=== PATIENT | female | born 1940 ===

== ENCOUNTER 2017-01-18 12:36 | Observation (INO) | payer SELFPAY ==
[2017-01-18 13:03] VITALS: BMI 32.5
--- NOTE | 2017-01-18 13:36 | ED PDOC ---
Arrival/HPI - General Chief Complaint: Dizziness/Lightheaded Time Seen by Provider: 01/18/17 13:10 Historian: Patient - History of Present Illness Narrative History of Present Illness (Text): 01/18/17 13:22 A 76 year old female, whose past medical history includes hypertension, diabetes and hypothyroidism, is brought into the emergency department by family complaining of dizziness for the past 3 days. Patient reports her symptom is relieved at rest and worse when standing up. Patient notes sweats, a dry cough and abdominal pain. Patient denies any headache, fever, nausea, vomiting, diarrhea, urinary symptoms, chest pain, shortness of breath, sore throat, congestion, rhinorrhea or any other complaints. Patient is visiting from [place]. Time/Duration: Other (days) Symptom Course: Unchanged Quality: Other Context: Home Past Medical History - Provider Review Nursing Documentation Reviewed: Yes - Travel History If Yes, travel location?: [place] - Cardiac Hx Hypertension: Yes - Endocrine/Metabolic Hx Diabetes Mellitus Type 2: Yes Hx Hypothyroidism: Yes - Psychiatric Hx Depression: Yes Hx Substance Use: No Family/Social History - Physician Review Nursing Documentation Reviewed: Yes Family/Social History: No Known Family HX Smoking Status: Never Smoked Hx Alcohol Use: No Hx Substance Use: No Allergies/Home Meds Allergies/Adverse Reactions: Allergies Penicillins Allergy (Verified 01/18/17 13:01) SWELLING Home Medications: Home Meds Medication Instructions Recorded Confirmed Albuterol HFA [Ventolin HFA 90 2 puff NEB Q6 PRN 01/18/17 01/18/17 mcg/actuation (8 g)] Carvedilol [Coreg] 12.5 mg PO DAILY 01/18/17 01/18/17 FLUoxetine [Prozac] 20 mg PO DAILY 01/18/17 01/18/17 Insulin Glargine, Recombina 60 units SC DAILY 01/18/17 01/18/17 [Lantus] Isosorbide Dinitrate [Isordil] 10 mg PO DAILY 01/18/17 01/18/17 Levothyroxine [Synthroid] 50 mcg PO DAILY 01/18/17 01/18/17 amLODIPine [Norvasc] 5 mg PO DAILY 01/18/17 01/18/17 Review of Systems - Physician Review All systems were reviewed & negative as marked: Yes - Review of Systems Constitutional: Night Sweats. absent: Fevers ENT: absent: Sore Throat, Rhinorrhea, Sinus Congestion Respiratory: Cough. absent: SOB, Sputum Cardiovascular: absent: Chest Pain Gastrointestinal: Abdominal Pain. absent: Diarrhea, Nausea, Vomiting Genitourinary Female: absent: Dysuria, Frequency, Hematuria, Urine Output Changes Neurological: Dizziness. absent: Headache Physical Exam Vital Signs Temp Pulse Resp BP Pulse Ox 01/18/17 16:34 62 18 141/63 98 01/18/17 14:23 20 L 18 121/85 98 01/18/17 13:05 98.6 F 66 18 143/71 96 Appearance: Positive for: Well-Appearing, Non-Toxic, Comfortable Pain Distress: None Mental Status: Positive for: Alert and Oriented X 3 - Systems Exam Head: Present: Atraumatic, Normocephalic Pupils: Present: PERRL Extroacular Muscles: Present: EOMI Conjunctiva: Present: Normal Mouth: Present: Moist Mucous Membranes Neck: Present: Normal Range of Motion Respiratory/Chest: Present: Good Air Exchange, Rhonchi (Rhonchi in bilateral lower lung field). No: Respiratory Distress, Accessory Muscle Use Cardiovascular: Present: Regular Rate and Rhythm, Normal S1, S2. No: Murmurs Abdomen: Present: Normal Bowel Sounds. No: Tenderness, Distention, Peritoneal Signs Back: Present: Normal Inspection Upper Extremity: Present: Normal Inspection. No: Cyanosis, Edema Lower Extremity: Present: Normal Inspection. No: Edema Neurological: Present: GCS=15, CN II-XII Intact, Speech Normal Skin: Present: Warm, Dry, Normal Color. No: Rashes Psychiatric: Present: Alert, Oriented x 3, Normal Insight, Normal Concentration Medical Decision Making ED Course and Treatment: 01/18/17 13:22 Impression: A 76 year old female with dizziness when standing up. Patient notes sweats, dry cough and abdominal pain. Differential Diagnosis included but are not limited to: Dizziness, Cough rule out PNA vs. Sepsis Plan: -- Chest xray -- EKG -- Labs -- Blood and Urine culture -- Urinalysis -- Reassess and disposition Progress Notes: EKG shows NSR at [address]-segment elevations, normal intervals. Interpreted by me. Report Date : 01/18/2017 13:59:53 PROCEDURE: Single-view chest Dictator : Naman Witt MD IMPRESSION: No active disease. - Lab Interpretations Lab Results: 01/18/17 14:00 01/18/17 14:00 Lab Results 01/18/17 14:00: WBC 9.1, RBC 4.37, Hgb 13.3, Hct 39.8, MCV 91.1, MCH 30.4, MCHC 33.4, RDW 14.6 H, Plt Count 273, MPV 9.4, Gran % 59.6, Lymph % (Auto) 31.3, [place] % (Auto) 5.1, Eos % (Auto) 3.5, Baso % (Auto) 0.5, Gran # 5.43, Lymph # 2.9 , [place] # 0.5, Eos # 0.3, Baso # 0.05, pO2 32, VBG pH 7.31 L, VBG pCO2 62.0 H, VBG HCO3 31.2 H, VBG Total CO2 33.1 H, VBG O2 Sat (Calc) 59.6, VBG Base Excess 3.2 H, VBG Potassium 4.9, Glucose 230 H, Lactate 1.6, FiO2 21.0, Sodium 138.0, Potassium 4.8, Chloride 101.0, Carbon Dioxide 28, Anion Gap 17, BUN 23 H, Creatinine 0.7, Est GFR ( Amer) > 60, Est GFR (Non-Af Amer) > 60, Random Glucose 224 H, Calcium 9.7, Phosphorus 4.3, Magnesium 1.9, Total Bilirubin 0.6, AST 30, ALT 16, Alkaline Phosphatase 108, Troponin I < 0.01, NT-Pro-B Natriuret Pep 52.7, Total Protein 9.0 H, Albumin 4.1, Globulin 4.9, Albumin/Globulin Ratio 0.8 L, Lipase 108, Venous Blood Potassium 4.9 I have reviewed the lab results: Yes Interpretation: All labs normal - RAD Interpretation Radiology Orders: 01/18/17 13:21 CHEST PORTABLE [RAD] Stat 01/18/17 16:16 HEAD W/O CONTRAST [CT] Stat CXR negative for pna Supervisor [employer]: ED Physician - Medication Orders Current Medication Orders: Discontinued Medications Aspirin (Aspirin) 325 mg PO STAT STA Stop: 01/18/17 18:53 Sodium Chloride (Sodium Chloride 0.9%) 1,000 mls @ 999 mls/hr IV .Q1H1M STA Stop: 01/18/17 15:46 Last Admin: 01/18/17 15:15 Dose: 999 MLS/HR eMAR Start Stop Document 01/18/17 15:15 BARRETT (Rec: 01/18/17 15:20 BARRETT [id number]) Intravenous Solution Start Date 01/18/17 Start Time 15:15 End Date 01/18/17 End time 15:45 Total Infusion Time 30 Meclizine HCl (Antivert) 25 mg PO STAT STA Stop: 01/18/17 16:17 Last Admin: 01/18/17 16:34 Dose: 25 MG Metoclopramide HCl (Reglan) 10 mg IVP STAT STA Stop: 01/18/17 18:19 ED OBSERVATION Date of observation admission: 01/18/17 Time of observation admission: 13:30 - Observation admission statement Patient is being placed in observation because:: Dizziness - Goals of Observation Goals of observation are:: IVF, Meclizine - Progress Note Progress Note: 01/18/17 16:18 On revaluation after 1 L NS patient continues to feel dizzy. Niece arrived who states that she does suffer from vertigo and her doctor stopped giving her medications for it. CT head ordered. Meclizine ordered and will reevaluate. 01/18/17 18:22 On reevaluation after Meclizine PO patient stands up and walks for me and feels very unsteady. She walks and has ataxia. CT results pending. Reglan IV ordered as sedcond line antivert. 01/18/17 18:54 Patient continued to feel dizzy when walking and has not improved. Laying down she feels better. CT resulted as negative for ICH or Stroke as discussed with Dr. Li. Will place on telemetry observation for Persistent Dizziness r/o TIA/ CVA and Bronchitis/Viral Syndrome. 01/18/17 19:[address] Interiano Resident. NIHSS Scale ([place]) Time Performed: 13:10 - How Severe is the Stoke Baseline Level of Consciousness: 0=Alert LOC to Questions: 0=Both comments correct LOC to commands: 0=Obeys both correctly Best Gaze: 0=Normal Visual: 0=No visual loss Facial: 0=Normal Motor Arm - Left: 0=No drift Motor Arm - Right: 0=No drift Motor Leg - Left: 0=No drift Motor Leg - Right: 0=No drift Limb Ataxia: 0=Absent Sensory: 0=Normal Best Language: 0=No aphasia Dysarthia: 0=Normal articulation Extinction & Inattention (Neglect): 0=Normal, no object Score: 0 Risk Level: No Stroke Risk rTPA Inclusion/Exclusion - Refusal of Treatment Patient Refused Treatment: No - Inclusion Criteria for Altepase Patient is 18 years or Older: Yes The Clinical Diagnosis of Ischemic Stroke That is Causing a Potentially Disabling Neurological Deficit: No Time of Onset is Well Established to be Less Than 270 Minute Before Treatment Would Begin: No Risk/Benefit Discussed With Patient/Family Member Present: No - Scribe Statement The provider has reviewed the documentation as recorded by the Pritiibroe Hassan Provider Scribe Attestation: All medical record entries made by the Scribe were at my direction and personally dictated by me. I have reviewed the chart and agree that the record accurately reflects my personal performance of the history, physical exam, medical decision making, and the department course for this patient. I have also personally directed, reviewed, and agree with the discharge instructions and disposition. Disposition/Present on Arrival - Present on Arrival Any Indicators Present on Arrival: No History of DVT/PE: No History of Uncontrolled Diabetes: No Urinary Catheter: No History of Decub. Ulcer: No History Surgical Site Infection Following: None - Disposition Have Diagnosis and Disposition been Completed?: Yes Diagnosis: Dizziness Disposition Time: 13:30 Patient Plan: Observation Patient Problems: Current Active Problems Problem Status Diagnosed Dizziness Acute Condition: FAIR Referrals: PCP,NO [Primary Care Provider] - Follow up with primary
--- NOTE | 2017-01-18 14:01 | RAD ---
PROCEDURE: Single-view chest HISTORY: Sepsis Patient COMPARISON: None TECHNIQUE: Technique: Single view portable semi erect @ 13:35. FINDINGS: No active pulmonary disease. No pulmonary nodules, masses or infiltrates. No evidence of acute, significant cardiovascular disease. No significant pleural, osseous or subdiaphragmatic abnormalities. IMPRESSION: No active disease.
[2017-01-18 14:10] LABS: ADD MANUAL DIFF? NO
[2017-01-18 14:16] LABS: VENOUS BLOOD GAS BASE EXCESS 3.2 mmol/L (0.0-2.0); VENOUS BLOOD PH 7.31 (7.32-7.43)
[2017-01-18 14:27] LABS: BASO # 0.05 K/mm3 (0.0-2.0); BASO % 0.5 % (0.0-3.0); EOS # 0.3 (0.0-0.7); EOS % 3.5 % (1.5-5.0); GRAN # 5.43 (1.4-6.5); GRAN % 59.6 % (50.0-68.0); HEMATOCRIT 39.8 % (36.0-48.0); LYMPH # 2.9 (1.2-3.4); LYMPH % 31.3 % (22.0-35.0); MEAN CELL VOLUME 91.1 fL (80.0-105.0); MEAN CORPUSCULAR HEMOGLOBIN 30.4 pg (25.0-35.0); MEAN CORPUSCULAR HGB CONC 33.4 g/dl (31.0-37.0); MEAN PLATELET VOLUME 9.4 fl (7.0-11.0); MONO # 0.5 (0.1-0.6); MONO % 5.1 % (1.0-6.0); PLATELET COUNT 273 10^3/uL (120.0-450.0); RED CELL DISTRIBUTION WIDTH 14.6 % (11.5-14.5); WHITE BLOOD COUNT 9.1 10^3/ul (4.5-11.0)
[2017-01-18 14:31] LABS: ALB/GLOB RATIO 0.8 (1.1-1.8); ALKALINE PHOSPHATASE 108 U/L (38-133); ALT/SGPT 16 U/L (7-56); AST/SGOT 30 U/L (15-39); BILIRUBIN,TOTAL 0.6 mg/dL (0.2-1.3); BLOOD UREA NITROGEN 23 mg/dL (7-21); CALCIUM 9.7 mg/dL (8.4-10.5); CARBON DIOXIDE 28 mmol/L (21-33); CHLORIDE 98 mmol/L (98-107); GFR AFRICAN-AMERICAN > 60; GLUCOSE,RANDOM 224 mg/dL (70-110); MAGNESIUM 1.9 mg/dL (1.7-2.2); PHOSPHOROUS 4.3 mg/dL (2.5-4.5); POTASSIUM 4.8 mmol/L (3.6-5.0); SODIUM 138 mmol/L (132-148)
[2017-01-18 14:43] LABS: TROPONIN I < 0.01 ng/mL
[2017-01-18] MEDS ORDERED: Sodium Chloride 0.9% 1,000 ML IV STA (14:46)
--- NOTE | 2017-01-18 18:14 | CARD ---
APPROVED REPORT EKG Measurement Heart [id number] <Conclusion> Normal sinus rhythm Normal ECG
--- NOTE | 2017-01-18 18:32 | CT ---
PROCEDURE: CT HEAD WITHOUT CONTRAST. HISTORY: r/o cva COMPARISON: None available. TECHNIQUE: Axial computed tomography images were obtained through the head/brain without intravenous contrast. Radiation dose: Total exam DLP = 725.84 mGy-cm. FINDINGS: HEMORRHAGE: No intracranial hemorrhage. BRAIN: Diffuse atrophy with prominence of the ventricles and sulci noted. No mass effect or edema. Intracranial atherosclerotic calcifications. Mild scattered white matter hypodensities, which are nonspecific, but often seen with chronic microvascular ischemic disease. Please note that MRI with diffusion imaging is more sensitive in the detection of acute ischemic event. VENTRICLES: No hydrocephalus. CALVARIUM: Bilateral lucencies involving the calvarium, temporal region; indeterminate. PARANASAL SINUSES: Unremarkable as visualized. No significant inflammatory changes. MASTOID AIR CELLS: Unremarkable as visualized. No inflammatory changes. OTHER FINDINGS: None. IMPRESSION: Generalized atrophy. Nonspecific white matter changes. Bilateral lucencies involving the calvarium, temporal region; indeterminate. Correlate with clinical history. Additional imaging such as bone scan or MRI may be considered in proper clinical setting.
--- NOTE | 2017-01-18 19:19 | CP.PCM.HP ---
<LizRissa - Last Filed: 01/18/17 20:31> History of Present Illness - History of Present Illness History of Present Illness: PGY-[address] Alexandra A 76 year old female who recently flew from [place] 2 weeks ago, whose past medical history includes 1 vessel CAD s/p stent, hypertension, diabetes, gastritis, and hypothyroidism, is brought into the emergency department by family complaining of dizziness for the past 3 days. Dizziness is related to room spinning, not lightheadedness. Patient reports her symptom is relieved at rest and worse when standing up. Patient noticed dry cough. She recently had epigastric abdominal pain since she ran out of omeprazole, gnawing, worsen upon palpation. Pt states that she does suffer from vertigo but her doctor stopped giving her medications for it. Normally the med helped her in 15 mins. Patient denies any head trauma, headache, fever, chills, nausea, vomiting, diarrhea, urinary symptoms, chest pain, shortness of breath, sore throat, congestion, rhinorrhea or any other complaints. On PE, noted Rhonchi. EKG shows NSR at [address]-segment elevations, normal intervals. CT resulted as negative for ICH or Stroke. NIHSS 0. Pt felt dizzy despite 1L NS, meclizine, reglan. After interventions, Patient continued to feel dizzy when walking and has not improved. Laying down she feels better. Pt is admitted to telemetry observation for Persistent Dizziness r/o TIA/CVA and Bronchitis/Viral Syndrome. PMH 1 vessel CAD with stent placement Hypertension Diabetes Mellitus Type 2, IDDM gastritis Hypothyroidism Depression PSH Cholecysectomy CAD s/p stent FH all healthy SH Never Smoked Denies Alcohol/Substance Use Allergies Penicillins -SWELLING Meds Albuterol Carvedilol [Coreg] 12.5 mg PO DAILy amLODIPine [Norvasc] 5 mg PO DAILY FLUoxetine [Prozac] 20 mg PO DAILY Insulin Glargine, Recombina 60 units SC DAILY Isosorbide Dinitrate [Isordil] 10 mg PO DAILY Levothyroxine [Synthroid] 50 mcg PO omeprazole PMD None Present on Admission - Present on Admission Any Indicators Present on Admission: No Past Patient History - Past Social History Smoking Status: Never Smoked - CARDIAC Hx Hypertension: Yes - ENDOCRINE/METABOLIC Hx Diabetes Mellitus Type 2: Yes Hx Hypothyroidism: Yes - PSYCHIATRIC Hx Depression: Yes Hx Substance Use: No Meds Allergies/Adverse Reactions: Allergies Allergy/AdvReac Type Severity Reaction Status Date / Time Penicillins Allergy SWELLING Verified 01/18/17 13:01 Physical Exam - Constitutional Appears: No Acute Distress - Head Exam Head Exam: ATRAUMATIC, NORMOCEPHALIC - Eye Exam Eye Exam: EOMI, Normal appearance, PERRL Pupil Exam: NORMAL ACCOMODATION - ENT Exam ENT Exam: Mucous Membranes Moist - Neck Exam Neck exam: Positive for: Normal Inspection Additional comments: no jvd, supple - Respiratory Exam Respiratory Exam: Clear to Auscultation Bilateral, NORMAL BREATHING PATTERN. absent: Rales, Rhonchi, Wheezes - Cardiovascular Exam Cardiovascular Exam: REGULAR RHYTHM, +S1, +S2. absent: Systolic Murmur - GI/Abdominal Exam GI & Abdominal Exam: Normal Bowel Sounds, Soft, Tenderness. absent: Distended, Firm, Guarding, Rigid Additional comments: LUQ - Extremities Exam Extremities exam: Positive for: normal capillary refill, pedal pulses present. Negative for: calf tenderness, pedal edema - Back Exam Back exam: absent: CVA tenderness (L), CVA tenderness (R) - Neurological Exam Neurological exam: Alert, CN II-XII Intact, Oriented x3, Reflexes Normal Additional comments: motor sensory grossly intact. negative dixhallpike - Psychiatric Exam Psychiatric exam: Normal Affect, Normal Mood - Skin Skin Exam: Dry, Normal Color, Warm Results - Vital Signs Recent Vital Signs: Last Vital Signs Temp 98.2 F 01/18/17 19:15 Pulse 80 01/18/17 19:15 Resp 18 01/18/17 19:15 BP 135/77 01/18/17 19:15 Pulse Ox 98 01/18/17 19:15 - Labs Result Diagrams: 01/18/17 14:00 01/18/17 14:00 Labs: Laboratory Results - last 24 hr 01/18/17 14:00 WBC 9.1 RBC 4.37 Hgb 13.3 Hct 39.8 MCV 91.1 MCH 30.4 MCHC 33.4 RDW 14.6 H Plt Count 273 MPV 9.4 Gran % 59.6 Lymph % (Auto) 31.3 [place] % (Auto) 5.1 Eos % (Auto) 3.5 Baso % (Auto) 0.5 Gran # 5.43 Lymph # 2.9 [place] # 0.5 Eos # 0.3 Baso # 0.05 pO2 32 VBG pH 7.31 L VBG pCO2 62.0 H VBG HCO3 31.2 H VBG Total CO2 33.1 H VBG O2 Sat (Calc) 59.6 VBG Base Excess 3.2 H VBG Potassium 4.9 Sodium 138 Chloride 98 Glucose 230 H Lactate 1.6 FiO2 21.0 Potassium 4.8 Carbon Dioxide 28 Anion Gap 17 BUN 23 H Creatinine 0.7 Est GFR ( Amer) > 60 Est GFR (Non-Af Amer) > 60 Random Glucose 224 H Calcium 9.7 Phosphorus 4.3 Magnesium 1.9 Total Bilirubin 0.6 AST 30 ALT 16 Alkaline Phosphatase 108 Troponin I < 0.01 NT-Pro-B Natriuret Pep 52.7 Total Protein 9.0 H Albumin 4.1 Globulin 4.9 Albumin/Globulin Ratio 0.8 L Lipase 108 Venous Blood Potassium 4.9 Assessment & Plan - Assessment and Plan (Free Text) Plan: A 76 year old female who recently flew from [place] 2 weeks ago, whose past medical history includes 1 vessel CAD s/p stent, hypertension, diabetes, gastritis, and hypothyroidism, admitted for dizziness. he recently had epigastric abdominal pain since she ran out of omeprazole, gnawing, worsen upon palpation. Dizziness - likely vertigo due to BPPV, possible labyrinthitis - r/o lightheadedness from vasovagal, cardiogenic, volume depletion - r/o TIA/CVA. NIHSS 0 - IVF - Physical Therapy - echo, carotid doppler - CT head -- generalized atrophy, non-specific white matter changes, bilateral lucencies involiving calvarium, temporal region - MRI head - tele obs - TSH, orthostatic Epigastric Abdominal pain - protonix trial - r/o cardiac cause; trend cardiac enzyme Dry cough - no signs of sinusitus, likely from gerd/gastritis IDDM - ISSS - a1c - Home glargine 60 sc Hx CAD s/p stent Hx HTN - lipid panel - Home coreg, norvasc, isodil - Add aspirin Hx gastritis - add protonix - avoid nsaid hypothyroidism - home levothyroxine - ck thyroid panel Prophylaxis - lovenox, ptx S/R/D/w Dr. Alexandra - Date & Time Date: 01/18/17 Time: 19:19 <Cornelius Alexandra - Last Filed: 01/19/17 20:33> Results - Vital Signs Recent Vital Signs: Last Vital Signs Temp 98.3 F 01/19/17 12:00 Pulse 58 L 01/19/17 14:00 Resp 20 01/19/17 12:00 BP 112/70 01/19/17 12:00 Pulse Ox 97 01/19/17 09:00 - Labs Result Diagrams: 01/19/17 07:45 01/19/17 07:45 Labs: Laboratory Results - last 24 hr 01/18/17 01/19/17 01/19/17 22:24 07:31 07:45 WBC 9.8 RBC 4.19 Hgb 12.7 Hct 38.2 MCV 91.2 MCH 30.3 MCHC 33.2 RDW 14.7 H Plt Count 255 MPV 9.1 Gran % 57.0 Lymph % (Auto) 32.8 [place] % (Auto) 6.8 H Eos % (Auto) 2.9 Baso % (Auto) 0.5 Gran # 5.59 Lymph # 3.2 [place] # 0.7 H Eos # 0.3 Baso # 0.05 Sodium 141 Potassium 4.1 Chloride 105 Carbon Dioxide 26 Anion Gap 14 BUN 17 Creatinine 0.7 Est GFR ( Amer) > 60 Est GFR (Non-Af Amer) > 60 POC Glucose (mg/dL) 218 H 62 L Random Glucose 62 L Hemoglobin A1c 8.2 H Calcium 9.0 Total Bilirubin 0.6 AST 29 ALT 15 Alkaline Phosphatase 93 Lactate Dehydrogenase 350 Total Creatine Kinase 41 Troponin I < 0.01 Total Protein 8.2 Albumin 3.7 Globulin 4.5 Albumin/Globulin Ratio 0.8 L Attending/Attestation - Attestation I have personally seen and examined this patient.: Yes I have fully participated in the care of the patient.: Yes I have reviewed all pertinent clinical information: Yes Notes (Text): 01/19/17 20:32 Agree with history, physical examination , assessment and plan. Patient was examined when she was in ER .
[2017-01-18 20:24] LABS: PH,URINE 6.5 (4.7-8.0); URINE APPEARANCE CLEAR (CLEAR); URINE BILIRUBIN NEGATIVE (NEGATIVE); URINE BLOOD NEGATIVE (NEGATIVE); URINE COLOR YELLOW (YELLOW); URINE GLUCOSE (UA) NEGATIVE (NEGATIVE); URINE KETONE NEGATIVE (NEGATIVE); URINE LEUKOCYTE ESTERASE NEGATIVE Leu/uL (NEGATIVE); URINE PROTEIN NEGATIVE mg/dL (<30 mg/dL); URINE UROBILINOGEN 0.2 E.U./dL (<1 E.U./dL)
[2017-01-18] MEDS ORDERED: Albuterol HFA 90 mcg/actuation (8 g) INH PRN (20:27)
[2017-01-18] MEDS ORDERED: Albuterol 0.083% Inhal Sol (2.5 mg/3 mL) UD IH PRN (20:38)
[2017-01-18] MEDS: Sodium Chloride 0.9% 1,000 ML IV SCH (21:18)
--- NOTE | 2017-01-18 22:06 | US ---
PROCEDURE: Bilateral carotid artery duplex ultrasound HISTORY: Carotid stenosis dizziness PHYSICIAN(S): Cali Rey MD. TECHNIQUE: Duplex sonography and color-flow Doppler were used to evaluate the carotid bifurcations and limited segments of the vertebral arteries bilaterally. FINDINGS: There is mild smooth heterogeneous plaque noted at the carotid bifurcations bilaterally. The peak systolic velocity in the proximal right internal carotid artery is 67 cm/sec. This corresponds to a 20 to 39% proximal right ICA stenosis. Normal systolic velocities are noted in the proximal right external carotid artery. There is antegrade flow in the right vertebral artery. The peak systolic velocity in the proximal left internal carotid artery is 76 cm/sec. This corresponds to a 20 to 39% proximal left ICA stenosis. Normal systolic velocities are noted in the proximal left external carotid artery. There is antegrade flow in the dominant left vertebral artery. IMPRESSION: 1. Bilateral 20-39% proximal ICA stenoses. 2. Antegrade flow in both vertebral arteries.
[2017-01-18] MEDS: Insulin Lispro (humaLOG) LOW Coverage SC SCH (22:35)
[2017-01-18] MEDS: Insulin Detemir 100 units/ml Vial (Levemir) SC SCH (23:04)
[2017-01-18 23:17] LABS: FREE T4 0.67 ng/dL (0.78-2.19); T4 5.6 ug/dL (5.5-11.0)
[2017-01-18 23:18] LABS: CHOLESTEROL 238 mg/dL (130-200)
[2017-01-18 23:30] LABS: THYROID STIMULATING HORMONE 9.75 mIU/mL (0.46-4.68)
[2017-01-19 02:13] VITALS: RESP 20
[2017-01-19] MEDS ORDERED: Pantoprazole 40 mg EC Tab PO SCH (06:30)
[2017-01-19 07:49] LABS: ADD MANUAL DIFF? NO
[2017-01-19 07:53] LABS: BASO # 0.05 K/mm3 (0.0-2.0); BASO % 0.5 % (0.0-3.0); EOS # 0.3 (0.0-0.7); EOS % 2.9 % (1.5-5.0); GRAN # 5.59 (1.4-6.5); HEMATOCRIT 38.2 % (36.0-48.0); LYMPH # 3.2 (1.2-3.4); LYMPH % 32.8 % (22.0-35.0); MEAN CELL VOLUME 91.2 fL (80.0-105.0); MEAN CORPUSCULAR HEMOGLOBIN 30.3 pg (25.0-35.0); MEAN CORPUSCULAR HGB CONC 33.2 g/dl (31.0-37.0); MEAN PLATELET VOLUME 9.1 fl (7.0-11.0); MONO # 0.7 (0.1-0.6); MONO % 6.8 % (1.0-6.0); PLATELET COUNT 255 10^3/uL (120.0-450.0); RED CELL DISTRIBUTION WIDTH 14.7 % (11.5-14.5); WHITE BLOOD COUNT 9.8 10^3/ul (4.5-11.0)
[2017-01-19] MEDS: Insulin Lispro (humaLOG) LOW Coverage SC SCH ×2 (07:53→11:53)
[2017-01-19 08:32] LABS: ALB/GLOB RATIO 0.8 (1.1-1.8); ALKALINE PHOSPHATASE 93 U/L (38-133); ALT/SGPT 15 U/L (7-56); AST/SGOT 29 U/L (15-39); BILIRUBIN,TOTAL 0.6 mg/dL (0.2-1.3); BLOOD UREA NITROGEN 17 mg/dL (7-21); CARBON DIOXIDE 26 mmol/L (21-33); CHLORIDE 105 mmol/L (98-107); GFR AFRICAN-AMERICAN > 60; GLUCOSE,RANDOM 62 mg/dL (70-110); POTASSIUM 4.1 mmol/L (3.6-5.0); SODIUM 141 mmol/L (132-148); TOTAL PROTEIN 8.2 g/dL (5.8-8.3)
[2017-01-19] MEDS: Insulin Detemir 100 units/ml Vial (Levemir) SC SCH (09:29)
[2017-01-19 09:33] LABS: TROPONIN I < 0.01 ng/mL
[2017-01-19] MEDS ORDERED: Insulin Detemir 100 units/ml Vial (Levemir) SC SCH (09:56)
[2017-01-19] MEDS ORDERED: INSULIN GLARGINE RECOMBINA SC SCH (10:00)
[2017-01-19] MEDS ORDERED: Levothyroxine 50 MCG TAB PO SCH (10:00)
[2017-01-19] MEDS ORDERED: Enoxaparin 40 mg Syringe SC SCH (10:00)
--- NOTE | 2017-01-19 10:29 | MRI ---
PROCEDURE: MRI BRAIN WITHOUT CONTRAST HISTORY: bilateral lucencies involving the calvarium, temporal COMPARISON: Comparison made with CT scan of the brain 01/18/2017. TECHNIQUE: Multiplanar, multisequence MR images of the brain were obtained without intravenous contrast enhancement. FINDINGS: HEMORRHAGE: No acute parenchymal, subarachnoid or extra-axial hemorrhage. No hemosiderin deposition identified on gradient echo weighted sequence. DWI: No evidence of an acute or early subacute infarction seen on diffusion-weighted images. . BRAIN PARENCHYMA: There appears to be some very minimal chronic periventricular white matter ischemic changes most pronounced in the perianal frontal horn regions. In addition, there are multiple chronic appearing small lacunar type infarcts scattered about the deep and subcortical white matter both cerebral hemispheres. VENTRICLES: Mild age-appropriate volume loss. CRANIUM: Previously noted well-circumscribed lucency within the right posterior temporal bone chest cephalic to the mastoid air complex is not appreciated on this study and may represent vascular groove or possibly arachnoid granulations. . ORBITS: Orbits and contents unremarkable. . PARANASAL SINUSES/MASTOIDS: Clear VASCULAR SYSTEM: Visualized major vascular flow voids at skull base are patent. OTHER FINDINGS: None. IMPRESSION: No acute intracranial hemorrhage or infarct. Mild chronic white matter ischemic changes. Mild age-appropriate volume loss.
--- NOTE | 2017-01-19 10:31 | CON ---
DATE: 01/19/2017 REASON FOR CONSULTATION: Dizziness. HISTORY OF PRESENTING ILLNESS: The patient is a 76-year-old female who was brought to the Emergency Room with complaints of 3 days of dizziness. Dizziness is described as a spinning sensation. Since yesterday, she feels a little better now with dizziness; however, still gets dizzy. Denies having an y headaches. Denies any focal weakness in arms or legs. Denies to have any hearing loss or ringing in the ears. REVIEW OF SYSTEMS: Denies any headache. Positive for dizziness. Denies any chest pain, shortness o f breath, abdominal pain, constipation, diarrhea, dysuria, cough, sputum production. PAST MEDICAL HISTORY: Includes coronary artery disease, hypertension, diabetes mellitus, gastritis, hypothyroidism, depression. PAST SURGICAL HISTORY: Includes cholecystectomy. MEDICATIONS: At home included Prozac, Ventolin, Lantus, amlodipine, levothyroxine, Isordil, and Core g. ALLERGIES: PENICILLIN. SOCIAL HISTORY: Denies smoking, use of alcohol or illicit drugs. FAMILY HISTORY: Reviewed and noncontributory to the patient. PHYSICAL EXAMINATION: GENERAL: The patient is an elderly, pleasant female, lying on the bed, in no acute distress. VITAL SIGNS: Her blood pressure is 134/56, heart rate is 70 per minute, breathing at a rate of 16 pe r minute, temperature is 98 degrees Fahrenheit. HEENT: Head is normocephalic, atraumatic. NECK: Supple. There are no carotid bruits. LUNGS: Clear. CARDIOVASCULAR: S1 and S2 audible. No murmurs. ABDOMEN: Soft and nontender. Bowel sounds are present. NEUROLOGIC EXAMINATION: MENTAL STATUS: The patient is awake, alert, oriented to place, year, person. Speech is fluent. Nam ing and repetition normal. Memory and cognition are intact. CRANIAL NERVES: Pupils are 3 mm bilaterally, reactive to light. Visual may are full. Extraocula r movements are intact. There is no facial asymmetry. Palate is upgoing bilaterally and tongue is m idline. MOTOR: Tone is normal. Power is 5/5 bilaterally in all extremities. Reflexes +2 and symmetrical. Plantars downgoing bilaterally. CEREBELLAR: [id number] shows no dysmetria. GAIT: Deferred at the moment. SENSORY: Intact to soft touch and pinprick. LABORATORIES: Reviewed, shows WBC of 9.8, hemoglobin 12.7, hematocrit 38.2 and platelets of 255. So dium is 141, potassium 4.1, chloride 105, carbon dioxide content of 26, BUN of 17, creatinine 0.7, an d glucose of 62. She had a CT scan of the head done, which shows generalized atrophy, nonspecific minor white matter c hanges. Bilateral lucencies involving the calvarium temporal region, indeterminate. IMPRESSION: Dizziness, which appears to be secondary to labyrinthine dysfunction. RECOMMENDATIONS: 1. The patient to be started on low dose of meclizine 12.5 mg twice a day. 2. The patient to have MRI of the brain without contrast. 3. The patient to have physical therapy for gait imbalance. 4. If patient's MRI of the brain is negative for any acute intracranial pathology and patient is abl e to walk better, then consider discharging the patient and patient to be followed up as outpatient. Thank you for the opportunity to participate in the care of this patient. Sabrina Ayala MD cc: [id number] TT: 01/19/2017 10:31:23 Confirmation # [id number] Dictation # [id number]
[2017-01-19] MEDS: Sodium Chloride 0.9% 1,000 ML IV SCH (13:21)
[2017-01-19 13:50] VITALS: BP 112/70; TEMP 98.3
--- NOTE | 2017-01-19 15:28 | CON ---
DATE: 01/19/2017 HISTORY: The patient is a 76-year-old woman who complains of dizziness with symptoms consistent with vertigo. Her symptoms are exacerbated by moving her head and changing position. Her symptoms are better when her head is kept still. PAST MEDICAL HISTORY: Free of cardiac disease. She does have a history of diabetes mellitus. She denies chest pain, no shortness of breath. SOCIAL HISTORY: The patient does not smoke. REVIEW OF SYSTEMS: A 14-point review of systems is free of cardiac symptomatology. PHYSICAL EXAMINATION: VITAL SIGNS: Stable. NECK: Negative JVD. LUNGS: Without rales. HEART: Reveals S1, S2. EXTREMITIES: Without edema. EKG shows normal sinus rhythm with poor R-wave progression. LABORATORIES: Reviewed and found to be unremarkable. Echocardiogram is pending. IMPRESSION: 1. Dizziness, which is likely due to vertigo. 2. No evidence for active cardiac disease. 3. Abnormal EKG with poor R-wave progression. 4. Diabetes mellitus. Given these findings, I agree with neuro for starting meclizine. We will check her echocardiogram. Cali Tracy MD cc: [id number] TT: 01/19/2017 15:27:37 Confirmation # [id number] Dictation # [id number] sn
[2017-01-19 16:18] VITALS: O2SAT 97
[2017-01-19 16:22] VITALS: PULSE 58
--- NOTE | 2017-01-19 19:26 | CARD ---
APPROVED REPORT EXAM: Two-dimensional and M-mode echocardiogram with Doppler and color Doppler. INDICATION DIZZINESS 2D DIMENSIONS Left Atrium (2D)3.9 (1.6-4.0cm)IVSd1.0 (0.7-1.1cm) LVDd3.2 (3.9-5.9cm)PWd1.2 (0.7-1.1cm) LVDs2.4 (2.5-4.0cm)FS (%) 25.1 % LVEF (%)50.7 (>50%) M-Mode DIMENSIONS Aortic Root3.00 (2.2-3.7cm)Aortic Cusp Exc.1.50 (1.5-2.0cm) Aortic Valve AoV Peak Kcvlcjle764.0cm/Elsie Peak GR.11mmHg Mitral Valve MV E Zeeevpfb79.8cm/sMV A Deounonu02.4cm/sE/A ratio0.7 TDI Lateral E' Peak V6.34cm/sMedial E' Peak V4.68cm/sE/Lateral E'10.2 E/Medial E'13.8 Pulmonary Valve PV Peak Skzzqgif48.0cm/sPV Peak Grad.2mmHg Tricuspid Valve TR Peak Uvqewojm155hh/sRAP TJSKEABM79ypTlKJ Peak Gr.21mmHg [id number] LEFT VENTRICLE The left ventricle is normal size. There is normal left ventricular wall thickness. The left ventricular ejection fraction is borderline the normal range. Apical hypokinesis Transmitral Doppler flow pattern is Grade I-abnormal relaxation pattern. RIGHT VENTRICLE The right ventricle is normal size. There is normal right ventricular wall thickness. The right ventricular systolic function is normal. ATRIA The left atrium size is normal. The right atrium size is normal. AORTIC VALVE The aortic valve is not well visualized. No aortic regurgitation is present. MITRAL VALVE The mitral valve is mildly thickened. TRICUSPID VALVE There is trace tricuspid regurgitation. GREAT VESSELS The aortic root is normal in size. The IVC is normal in size and collapses >50% with inspiration. <Conclusion> The left ventricle is normal size. There is normal left ventricular wall thickness. The left ventricular ejection fraction is borderline the normal range. Apical hypokinesis Transmitral Doppler flow pattern is Grade I-abnormal relaxation pattern.
--- NOTE | 2017-01-19 20:35 | CP.PCM.DIS ---
<Russ Kebede - Last Filed: 01/19/17 20:19> Provider - Provider Date of Admission: 01/18/17 16:16 Attending physician: Siri Rosenberg MD Primary care physician: NO PRIMARY CARE PROVIDER Consults: Cardio: Demarcus Neuro: Sathya Ayala Time Spent in preparation of Discharge (in minutes): 45 Hospital Course - Lab Results Lab Results: Most Recent Lab Values WBC 9.8 10^3/ul (4.5-11.0) 01/19/17 07:45 RBC 4.19 10^6/uL (3.5-6.1) 01/19/17 07:45 Hgb 12.7 gm/dL (12.0-16.0) 01/19/17 07:45 Hct 38.2 % (36.0-48.0) 01/19/17 07:45 MCV 91.2 fL (80.0-105.0) 01/19/17 07:45 MCH 30.3 pg (25.0-35.0) 01/19/17 07:45 MCHC 33.2 g/dl (31.0-37.0) 01/19/17 07:45 RDW 14.7 % (11.5-14.5) H 01/19/17 07:45 Plt Count 255 10^3/uL (120.0-450.0) 01/19/17 07:45 MPV 9.1 fl (7.0-11.0) 01/19/17 07:45 Gran % 57.0 % (50.0-68.0) 01/19/17 07:45 Lymph % (Auto) 32.8 % (22.0-35.0) 01/19/17 07:45 Todd % (Auto) 6.8 % (1.0-6.0) H 01/19/17 07:45 Eos % (Auto) 2.9 % (1.5-5.0) 01/19/17 07:45 Baso % (Auto) 0.5 % (0.0-3.0) 01/19/17 07:45 Gran # 5.59 (1.4-6.5) 01/19/17 07:45 Lymph # 3.2 (1.2-3.4) 01/19/17 07:45 Todd # 0.7 (0.1-0.6) H 01/19/17 07:45 Eos # 0.3 (0.0-0.7) 01/19/17 07:45 Baso # 0.05 K/mm3 (0.0-2.0) 01/19/17 07:45 pO2 32 mm/Hg (30-55) 01/18/17 14:00 VBG pH 7.31 (7.32-7.43) L 01/18/17 14:00 VBG pCO2 62.0 (40-60) H 01/18/17 14:00 VBG HCO3 31.2 mmol/l (21-28) H 01/18/17 14:00 VBG Total CO2 33.1 mmol.L (22-28) H 01/18/17 14:00 VBG O2 Sat (Calc) 59.6 % (40-65) 01/18/17 14:00 VBG Base Excess 3.2 mmol/L (0.0-2.0) H 01/18/17 14:00 VBG Potassium 4.9 mmol/L (3.6-5.2) 01/18/17 14:00 Sodium 138.0 mmol/L (132-148) 01/18/17 14:00 Chloride 101.0 mmol/L (98-107) 01/18/17 14:00 Glucose 230 mg/dl (65-105) H 01/18/17 14:00 Lactate 1.6 mmol/L (0.7-2.1) 01/18/17 14:00 FiO2 21.0 % 01/18/17 14:00 Sodium 141 mmol/L (132-148) 01/19/17 07:45 Potassium 4.1 mmol/L (3.6-5.0) 01/19/17 07:45 Chloride 105 mmol/L (98-107) 01/19/17 07:45 Carbon Dioxide 26 mmol/L (21-33) 01/19/17 07:45 Anion Gap 14 (10-20) 01/19/17 07:45 BUN 17 mg/dL (7-21) 01/19/17 07:45 Creatinine 0.7 mg/dL (0.5-1.4) 01/19/17 07:45 Est GFR ( Amer) > 60 01/19/17 07:45 Est GFR (Non-Af Amer) > 60 01/19/17 07:45 POC Glucose (mg/dL) 62 mg/dL (65-110) L 01/19/17 07:31 Random Glucose 62 mg/dL (70-110) L 01/19/17 07:45 Hemoglobin A1c 8.2 % (4.2-6.5) H 01/19/17 07:45 Calcium 9.0 mg/dL (8.4-10.5) 01/19/17 07:45 Phosphorus 4.3 mg/dL (2.5-4.5) 01/18/17 14:00 Magnesium 1.9 mg/dL (1.7-2.2) 01/18/17 14:00 Total Bilirubin 0.6 mg/dL (0.2-1.3) 01/19/17 07:45 AST 29 U/L (15-39) 01/19/17 07:45 ALT 15 U/L (7-56) 01/19/17 07:45 Alkaline Phosphatase 93 U/L (38-133) 01/19/17 07:45 Lactate Dehydrogenase 350 U/L (333-699) 01/19/17 07:45 Total Creatine Kinase 41 U/L (35-230) 01/19/17 07:45 Troponin I < 0.01 ng/mL 01/19/17 07:45 NT-Pro-B Natriuret Pep 52.7 pg/mL (0-450) 01/18/17 14:00 Total Protein 8.2 g/dL (5.8-8.3) 01/19/17 07:45 Albumin 3.7 g/dL (3.0-4.8) 01/19/17 07:45 Globulin 4.5 gm/dL 01/19/17 07:45 Albumin/Globulin Ratio 0.8 (1.1-1.8) L 01/19/17 07:45 Triglycerides 201 mg/dL (35-160) H 01/18/17 14:00 Cholesterol 238 mg/dL (130-200) H 01/18/17 14:00 LDL Cholesterol Direct 135 mg/dL (0-129) H 01/18/17 14:00 HDL Cholesterol 47 mg/dL (29-60) 01/18/17 14:00 Lipase 108 U/L (23-300) 01/18/17 14:00 Free T4 0.67 ng/dL (0.78-2.19) L 01/18/17 14:08 Thyroxine (T4) 5.6 ug/dL (5.5-11.0) 01/18/17 14:08 TSH 3rd Generation 9.75 mIU/mL (0.46-4.68) H 01/18/17 14:08 Venous Blood Potassium 4.9 mmol/L (3.6-5.2) 01/18/17 14:00 Urine Color Yellow (YELLOW) 01/18/17 20:05 Urine Appearance Clear (CLEAR) 01/18/17 20:05 Urine pH 6.5 (4.7-8.0) 01/18/17 20:05 Ur Specific Remus 1.010 (1.005-1.035) 01/18/17 20:05 Urine Protein Negative mg/dL (<30 mg/dL) 01/18/17 20:05 Urine Glucose (UA) Negative mg/dL (NEGATIVE) 01/18/17 20:05 Urine Ketones Negative mg/dL (NEGATIVE) 01/18/17 20:05 Urine Blood Negative (NEGATIVE) 01/18/17 20:05 Urine Nitrate Negative (NEGATIVE) 01/18/17 20:05 Urine Bilirubin Negative (NEGATIVE) 01/18/17 20:05 Urine Urobilinogen 0.2 E.U./dL (<1 E.U./dL) 01/18/17 20:05 Ur Leukocyte Esterase Negative Artem/uL (NEGATIVE) 01/18/17 20:05 - Hospital Course Hospital Course: Upon Admission: 76 year old female PMHx DM, CAD, HTN, hypothyroidism, depression, gastritis here for evaluation of dizziness described as feeling faint which is positional. Patient described having similar symptoms in the past for which she takes Meclizine with relief. Patient is visiting from [facility] and plans on returning in 1 week. In the ED CT head showed no acute abnormalities but bilateral lucencies involving the calvarium, temporal region. MRI brain was ordered. Neuro consult was obtained and low dose Meclizine BID was started. There was low suspicion for any seizure-like activity. MRI brain reported chronic changes and no acute abnormalities. Orthostatic vitals were obtained this morning and were unremarkable. Of note, patient was on IVF overnight. ACS was ruled out and no EKG changes were found. Bilateral carotid artery disease on carotid artery u/s was ruled out. Preliminary echo findings showed EF 51% and mild mitral regurgitation. Upon reevaluation of patient, she felt her symptoms had improved. On labs, TSH was elevated and lipid panel was elevated. Patient was recommended to increase levothyroxine to 75mcg and follow a low fat low carb diet. On tele, patient was found to be mildly bradycardic, therefore, patient's home dose carvedilol dose was decreased to 6.25mg daily. Patient was discharged home. Extensive discussion was had with patient about importance of close follow up with PMD or [facility] clinic. All patient's questions were answered. Patient understood and agreed with plan. 1) Dizziness: resolved. Likely orthostatic. Meclizine 12.5mg PO BID prescribed. 2) Hx of Hypothyroidism: TSH was elevated at 9. Levothyroxine dose increased to 75mcg daily. 3) Mild bradycardia: asymptomatic. Carvedilol decreased to 6.25mg PO daily. 4) Hx of DM: Lantus refilled. HgbA1c 8.2. Outpatient follow up. 5) Hyperlipidemia: diet modification and outpatient follow up. Upon Discharge: Patient is cleared for discharge as per Dr. Rosenberg. 1. Patient is to follow up with her primary medical doctor within one week. 2. Patient is to continue all home medications. Patient is to increase her Levothyroxine to 75mcg Daily. (Prescription sent to [facility]) 3. Patient is to decrease her Carvedilol to 6.25mg Daily. (Prescription sent to [facility]) 4. Patient may take Meclizine as directed (Prescription sent to [facility]) 5. Ensure adequate fluid intake 6. Return to the ER with any concerning symptoms. New Prescriptions: 1. Levothyroxine 75mcg PO Daily #30/0 2. Meclizine 12.5mg PO BID #60/0 3. Carvedilol 6.25mg PO Daily #30/0 Discharge Exam - Head Exam Head Exam: ATRAUMATIC, NORMAL INSPECTION, NORMOCEPHALIC - Eye Exam Eye Exam: EOMI, Normal appearance, PERRL. absent: Scleral icterus Pupil Exam: PERRL - ENT Exam ENT Exam: Mucous Membranes Moist - Neck Exam Neck exam: Full Rom - Respiratory Exam Respiratory Exam: Clear to PA & Lateral, NORMAL BREATHING PATTERN, UNREMARKABLE. absent: Decreased Breath Sounds, Rales, Respiratory Distress - Cardiovascular Exam Cardiovascular Exam: REGULAR RHYTHM, RRR, +S1, +S2. absent: JVD - GI/Abdominal Exam GI & Abdominal Exam: Normal Bowel Sounds, Soft, Unremarkable. absent: Distended - Rectal Exam Rectal Exam: NORMAL INSPECTION - Extremities Exam Extremities exam: normal inspection - Back Exam Back exam: NORMAL INSPECTION - Neurological Exam Neurological exam: Alert, CN II-XII Intact, Oriented x3 - Psychiatric Exam Psychiatric exam: Normal Affect, Normal Mood - Skin Skin Exam: Dry, Intact, Normal Color, Warm Discharge Plan - Discharge Medications Prescriptions: Carvedilol [Coreg] 6.25 mg PO DAILY #30 tab Meclizine HCl 12.5 mg PO BID #60 tablet Levothyroxine [Synthroid] 75 mcg PO DAILY #30 tab - Follow Up Plan Condition: FAIR Disposition: HOME/ ROUTINE Instructions: Meclizine (By mouth), Heart Healthy Diet (GEN), Syncope (GEN), Meal Planning with Diabetes Exchanges (GEN), Dizziness (GEN) Additional Instructions: Patient is cleared for discharge as per Dr. Rosenberg. 1. Patient is to follow up with her primary medical doctor within one week. 2. Patient is to continue all home medications. Patient is to increase her Levothyroxine to 75mcg Daily. (Prescription sent to [facility]) 3. Patient is to decrease her Carvedilol to 6.25mg Daily. (Prescription sent to [facility]) 4. Patient may take Meclizine as directed (Prescription sent to [facility]) 5. Ensure adequate fluid intake 6. Return to the ER with any concerning symptoms. New Prescriptions: 1. Levothyroxine 75mcg PO Daily #30/0 2. Meclizine 12.5mg PO BID #60/0 3. Carvedilol 6.25mg PO Daily #30/0 As per [employer] Translate: El paciente es autorizado para ir a la casa el Dr. Rosenberg. 1. La paciente debe hacer un seguimiento con santiago mdico principal dentro de jenny semana. 2. El paciente debe continuar con todos los medicamentos en el hogar. Paciente es aumentar santiago Levothyroxine a 75mcg diario. (Prescripcin enviada a [facility]) 3. Paciente es disminuir santiago Carvedilol a 6,25 mg diarios. (Prescripcin enviada a [facility]) 4. El paciente puede darin Meclizina segn las instrucciones (Prescripcin enviada a [facility]) 5. Asegurar jenny ingesta de lquidos adecuada 6. Regrese a la christine de emergencia con cualquier sntoma relacionado. Nuevas recetas: 1. Levothyroxine 75 mcg PO Daily # 30/0 2. Meclizina 12,5 mg PO BID # 60/0 3. Carvedilol 6.25mg PO Daily #30/0 Referrals: [facility] at [facility] [Outside] PCP,NO [Primary Care Provider] - <Siri Rosenberg MD - Last Filed: 01/20/17 13:40> Provider - Provider Date of Admission: 01/18/17 16:16 Attending physician: Siri Rosenberg MD Primary care physician: LEI PRIMARY CARE PROVIDER Hospital Course - Lab Results Lab Results: Micro Results 01/18/17 20:05 Urine Urine Culture - Final No Growth (<1,000 CFU/ML) Most Recent Lab Values WBC 9.8 10^3/ul (4.5-11.0) 01/19/17 07:45 RBC 4.19 10^6/uL (3.5-6.1) 01/19/17 07:45 Hgb 12.7 gm/dL (12.0-16.0) 01/19/17 07:45 Hct 38.2 % (36.0-48.0) 01/19/17 07:45 MCV 91.2 fL (80.0-105.0) 01/19/17 07:45 MCH 30.3 pg (25.0-35.0) 01/19/17 07:45 MCHC 33.2 g/dl (31.0-37.0) 01/19/17 07:45 RDW 14.7 % (11.5-14.5) H 01/19/17 07:45 Plt Count 255 10^3/uL (120.0-450.0) 01/19/17 07:45 MPV 9.1 fl (7.0-11.0) 01/19/17 07:45 Gran % 57.0 % (50.0-68.0) 01/19/17 07:45 Lymph % (Auto) 32.8 % (22.0-35.0) 01/19/17 07:45 Todd % (Auto) 6.8 % (1.0-6.0) H 01/19/17 07:45 Eos % (Auto) 2.9 % (1.5-5.0) 01/19/17 07:45 Baso % (Auto) 0.5 % (0.0-3.0) 01/19/17 07:45 Gran # 5.59 (1.4-6.5) 01/19/17 07:45 Lymph # 3.2 (1.2-3.4) 01/19/17 07:45 Todd # 0.7 (0.1-0.6) H 01/19/17 07:45 Eos # 0.3 (0.0-0.7) 01/19/17 07:45 Baso # 0.05 K/mm3 (0.0-2.0) 01/19/17 07:45 pO2 32 mm/Hg (30-55) 01/18/17 14:00 VBG pH 7.31 (7.32-7.43) L 01/18/17 14:00 VBG pCO2 62.0 (40-60) H 01/18/17 14:00 VBG HCO3 31.2 mmol/l (21-28) H 01/18/17 14:00 VBG Total CO2 33.1 mmol.L (22-28) H 01/18/17 14:00 VBG O2 Sat (Calc) 59.6 % (40-65) 01/18/17 14:00 VBG Base Excess 3.2 mmol/L (0.0-2.0) H 01/18/17 14:00 VBG Potassium 4.9 mmol/L (3.6-5.2) 01/18/17 14:00 Sodium 138.0 mmol/L (132-148) 01/18/17 14:00 Chloride 101.0 mmol/L (98-107) 01/18/17 14:00 Glucose 230 mg/dl (65-105) H 01/18/17 14:00 Lactate 1.6 mmol/L (0.7-2.1) 01/18/17 14:00 FiO2 21.0 % 01/18/17 14:00 Sodium 141 mmol/L (132-148) 01/19/17 07:45 Potassium 4.1 mmol/L (3.6-5.0) 01/19/17 07:45 Chloride 105 mmol/L (98-107) 01/19/17 07:45 Carbon Dioxide 26 mmol/L (21-33) 01/19/17 07:45 Anion Gap 14 (10-20) 01/19/17 07:45 BUN 17 mg/dL (7-21) 01/19/17 07:45 Creatinine 0.7 mg/dL (0.5-1.4) 01/19/17 07:45 Est GFR ( Amer) > 60 01/19/17 07:45 Est GFR (Non-Af Amer) > 60 01/19/17 07:45 POC Glucose (mg/dL) 153 mg/dL (65-110) H 01/19/17 15:44 Random Glucose 62 mg/dL (70-110) L 01/19/17 07:45 Hemoglobin A1c 8.2 % (4.2-6.5) H 01/19/17 07:45 Calcium 9.0 mg/dL (8.4-10.5) 01/19/17 07:45 Phosphorus 4.3 mg/dL (2.5-4.5) 01/18/17 14:00 Magnesium 1.9 mg/dL (1.7-2.2) 01/18/17 14:00 Total Bilirubin 0.6 mg/dL (0.2-1.3) 01/19/17 07:45 AST 29 U/L (15-39) 01/19/17 07:45 ALT 15 U/L (7-56) 01/19/17 07:45 Alkaline Phosphatase 93 U/L (38-133) 01/19/17 07:45 Lactate Dehydrogenase 350 U/L (333-699) 01/19/17 07:45 Total Creatine Kinase 41 U/L (35-230) 01/19/17 07:45 Troponin I < 0.01 ng/mL 01/19/17 07:45 NT-Pro-B Natriuret Pep 52.7 pg/mL (0-450) 01/18/17 14:00 Total Protein 8.2 g/dL (5.8-8.3) 01/19/17 07:45 Albumin 3.7 g/dL (3.0-4.8) 01/19/17 07:45 Globulin 4.5 gm/dL 01/19/17 07:45 Albumin/Globulin Ratio 0.8 (1.1-1.8) L 01/19/17 07:45 Triglycerides 201 mg/dL (35-160) H 01/18/17 14:00 Cholesterol 238 mg/dL (130-200) H 01/18/17 14:00 LDL Cholesterol Direct 135 mg/dL (0-129) H 01/18/17 14:00 HDL Cholesterol 47 mg/dL (29-60) 01/18/17 14:00 Lipase 108 U/L (23-300) 01/18/17 14:00 Free T4 0.67 ng/dL (0.78-2.19) L 01/18/17 14:08 Thyroxine (T4) 5.6 ug/dL (5.5-11.0) 01/18/17 14:08 TSH 3rd Generation 9.75 mIU/mL (0.46-4.68) H 01/18/17 14:08 Venous Blood Potassium 4.9 mmol/L (3.6-5.2) 01/18/17 14:00 Urine Color Yellow (YELLOW) 01/18/17 20:05 Urine Appearance Clear (CLEAR) 01/18/17 20:05 Urine pH 6.5 (4.7-8.0) 01/18/17 20:05 Ur Specific Remus 1.010 (1.005-1.035) 01/18/17 20:05 Urine Protein Negative mg/dL (<30 mg/dL) 01/18/17 20:05 Urine Glucose (UA) Negative mg/dL (NEGATIVE) 01/18/17 20:05 Urine Ketones Negative mg/dL (NEGATIVE) 01/18/17 20:05 Urine Blood Negative (NEGATIVE) 01/18/17 20:05 Urine Nitrate Negative (NEGATIVE) 01/18/17 20:05 Urine Bilirubin Negative (NEGATIVE) 01/18/17 20:05 Urine Urobilinogen 0.2 E.U./dL (<1 E.U./dL) 01/18/17 20:05 Ur Leukocyte Esterase Negative Aretm/uL (NEGATIVE) 01/18/17 20:05 Attending/Attestation - Attestation I have personally seen and examined this patient.: Yes I have fully participated in the care of the patient.: Yes I have reviewed all pertinent clinical information, including history, physical exam and plan: Yes Notes (Text): Patient was seen and examined with medical safety director .Agreed with resident assessment and plan. Patient is feeling better.Dizziness has improved.MRI of brain was normal.No significant vavular abnormalities on Echo.Patient was found to have Sinus bradycardia .HR around 45 transiently.She was asymptometic and ambulatory.Coreg dose has been reduced to 12.5 mg PO BID. Patient was evaluated by Physical therapy prior to discharge.She is ambulatory at the time of discharge. Management plan was discussed in detail with patient Education was provided.
== END 2017-01-19 17:15 | disposition home or self-care (01) ==
LOC: ED 12:36 → EROBSV 16:16 → ERH 18:44 → 2RSO 23:46
PROVIDERS: ADMIT Internal Medicine; ATTEND Internal Medicine
DX: I95.1 Orthostatic hypotension (principal); H83.2X9 Labyrinthine dysfunction, unspecified ear; R00.1 Bradycardia, unspecified; E11.9 Type 2 diabetes mellitus without complications; E78.5 Hyperlipidemia, unspecified; E03.9 Hypothyroidism, unspecified; I10 Essential (primary) hypertension; I25.10 Atherosclerotic heart disease of native coronary artery without angina pectoris; I34.0 Nonrheumatic mitral (valve) insufficiency; K29.70 Gastritis, unspecified, without bleeding; R29.700 NIHSS score 0; Z79.4 Long term (current) use of insulin; Z79.899 Other long term (current) drug therapy; Z88.0 Allergy status to penicillin; Z95.5 Presence of coronary angioplasty implant and graft; F32.89 Other specified depressive episodes; K21.9 Gastro-esophageal reflux disease without esophagitis; Z90.49 Acquired absence of other specified parts of digestive tract
CPT/HCPCS: 36415; 70450; 70551; 71010; 80053; 80061; 81003; 82550; 82803; 82948; 83036; 83615; 83690; 83735; 83880; 84100; 84439; 84443; 84484; 85025; 87040; 87086; 93005; 93306; 93880; 96372; 96374; 99285; G0378; J1650; J2765; J7040